=== PATIENT | female | born 1995 | race Caucasian/White ===

== ENCOUNTER 2018-01-19 09:28 | Day surgery (SDC) | payer OTHER ==
[~2018-01-19] VITALS: Ht 157.5 cm; Wt 83.9 kg
[~2018-01-19 09:28] MED LIST: ADVAIR 250/501 DISK IH; CELEXA40 MG PO; SINGULAIR10 MG PO; VENTOLIN HFA18 GM IH
[2018-01-19 10:01] VITALS: BP 122/73
[2018-01-19 10:40] LABS: HEMATOCRIT 41.8 % (36.0-46.0); HEMOGLOBIN 13.7 G/DL (11.9-15.5); MCH 26.7 PG (29.0-34.0); MCHC 32.8 G/DL (30.0-36.0); MCV 81.3 FL (83-99); PLATELET COUNT 391 K/uL (156-360); RBC DIS.WIDTH-CV 13.8 % (11.8-14.6); RBC DIS.WIDTH-SD 40.2 % (39-53); RED BLOOD COUNT 5.14 M/uL (3.80-5.20); WHITE BLOOD COUNT 9.6 K/uL (4.1-10.2)
[2018-01-19] MEDS ORDERED: HYDROCODON-ACE1 EAC7 PO (13:04)
[2018-01-19] MEDS ORDERED: IBUPROFEN800 MG PO (13:04)
[2018-01-19 14:34] VITALS: BP 104/67
[2018-01-19 15:35] VITALS: BP 110/63
[2018-01-19 16:52] VITALS: BP 126/67
== END 2018-01-19 16:59 | disposition home or self-care (01) ==
LOC: SDC 09:28
PROVIDERS: Obstetrics & Gynecology
PROC: 0U574ZZ Destruction of Bilateral Fallopian Tubes, Percutaneous Endoscopic Approach (ICD-10-PCS; principal; 2018-01-19)
DX: Z30.2 Encounter for sterilization (principal); J45.909 Unspecified asthma, uncomplicated; Z83.3 Family history of diabetes mellitus
CPT/HCPCS: 81025; 85027; 86850; 86900; 86901; J0330; J1100; J1170; J1885; J2250; J2405; J2710; J3010; J7643; S0020